=== PATIENT | male | born 1940 | race Two or more races ===

== ENCOUNTER → 2016-12-07 | Outpatient (CLI) | payer SELFPAY | END | disposition home or self-care (01) | LOC: LAB 09:37 | PROVIDERS: ATTEND Urology | DX: R97.20 Elevated prostate specific antigen [PSA] (principal) ==

== ENCOUNTER → 2018-03-04 | Outpatient (CLI) | payer MEDICAID, OTHER ==
[~2018-03-04] VITALS: Ht 172 cm; Wt 77.0 kg
[~2018-03-04] MED LIST: ADENOSINE 65 MG in GIVE UN-DILUTED 0 ML IV ONE
== END | disposition home or self-care (01) ==
LOC: XY 07:39
PROVIDERS: ATTEND Internal Medicine
DX: R07.89 Other chest pain (principal)
CPT/HCPCS: 78452; 93017; A9500; J0153